=== PATIENT | male | born 1945 | race Caucasian/White ===

== ENCOUNTER 2017-01-15 11:57 | Emergency (ER) | payer MEDICARE, OTHER ==
[2017-01-15 12:10] VITALS: BP 126/82
[2017-01-15] MEDS ORDERED: SILVER SULFADIAZINE 50 APPL JAR TP ONE ×2 (12:42→12:58)
--- OUTSIDE RECORDS SUMMARY | 2017-01-15 12:52 | XMS REPORT | Continuity of Care Document ---
:1945 Author Organization [facility] ([facility]) [place] [address] Phone [phone] Care Team Providers Name Role Phone Unavailable Primary Care Provider Unavailable Source Comments This disclosure is being made pursuant to the Care Everywhere program, applicable federal and state laws, and may not contain all informaitonavailable regarding this patient.[facility] ([facility]) Active Allergies and Adverse Reactions No Active Allergies Current Medications Not on file Active Problems Not on file Social History Tobacco Use Types Packs/Day Years Used Date Never Assessed Last Filed Vital Signs Vital Sign Reading Time Taken Blood Pressure 146/78 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 Pulse 73 

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
== END 2017-01-15 12:55 | disposition home or self-care (01) ==
LOC: ER 11:57
DX: T23.291A Burn of second degree of multiple sites of right wrist and hand, initial encounter (principal); T22.111A Burn of first degree of right forearm, initial encounter; T31.0 Burns involving less than 10% of body surface; X10.2XXA Contact with fats and cooking oils, initial encounter; Y93.9 Activity, unspecified; Y92.000 Kitchen of unspecified non-institutional (private) residence as the place of occurrence of the external cause; G89.29 Other chronic pain; E11.9 Type 2 diabetes mellitus without complications

== ENCOUNTER 2021-02-10 12:36 | Inpatient (IN) ==
[2021-02-10] MEDS ORDERED: NORMAL SALINE 1,000 ML IV ONE (12:53)
[2021-02-10 13:40] LABS: Albumin * 2.9 gm/dl (3.4-5.0); Anion Gap 21.3 mmol/L (6.8-13.8); Bilirubin, Total 1.4 mg/dL (0.0-1.1); Ca. Corrected For Albumin 9.1 mg/dL (8.4-10.2); Calcium * 8.5 mg/dL (7.9-10.9); Carbon Dioxide 15.8 mmol/L (24-32.6); Potassium 4.1 mmol/L (3.4-4.6); Total Protein 6.6 gm/dL (6.2-8.2)
[2021-02-10 14:13] LABS: Hematocrit 39.6 % (42.0-52.0); Hemoglobin 13.6 gm/dL (13.5-18.0); Mean Cell Volume 90.2 fl (78-100); Mean Corpuscular Hgb Conc 34.3 g/dl (32-36); Mean Platelet Volume 9.2 fl (8-11.3); Platelet Count 237 K/mm3 (150-450); Red Blood Count 4.39 M/mm3 (4.7-6.0); Red Cell Distribution Width 13.9 % (11.5-14.0)
[2021-02-10 14:16] LABS: Total Cells Counted 100
[2021-02-10 14:30] LABS: Eosinophil 1 % (0-3); Immature Granulocyte 3 (0-1); Lymphocyte 5 % (20-51); Monocyte 4 % (0-9); Neutrophil 87 % (42-75)
[2021-02-10 14:32] LABS: Neutrophil # 13.4 K/mm3 (1.3-6.0); Poikilocytosis Trace; White Blood Count 15.4 K/mm3 (4.0-10.5)
[2021-02-10 14:33] LABS: Platelet Estimate Normal (NORMAL)
[2021-02-10 14:47] LABS: Urine Bilirubin 1 mg/dl (NEGATIVE); Urine Blood Negative /ul (NEGATIVE); Urine Ketone 50 mg/dL (NEGATIVE); Urine Nitrite Negative (NEGATIVE); Urine Protein 15 mg/dL (NEGATIVE); Urine Specific Gravity >=1.030 SP.GR. (1.005-1.030); Urine Urobilinogen Normal (NORMAL)
[2021-02-10 15:08] LABS: Urine Appearance Clear (CLEAR); Urine Color Amber
--- NOTE | 2021-02-10 15:08 | ERNOTE ---
Neuro HPI ER Record Date of Service: 02/10/21 Presenting Symptoms: weakness, confusion Time Seen by Provider: 02/10/21 12:45 Source: patient Exam Limitations: other - poor historian Immunizations: IMMUNIZATION HX Immunizations Up to Date Yes History of Influenza Vaccine No Hx Pneumococcal Vaccination No Allergies/Adverse Reactions: Allergies Allergy/AdvReac Type Severity Reaction Status Date / Time No Known Allergies Allergy Verified 01/15/17 12:10 Home Medications: HOME MEDICATIONS Atorvastatin Calcium [Lipitor] 80 mg PO DAILY 01/13/13 [Last Taken Unknown] Glipizide [Glipizide Xl] 10 mg PO BID 01/13/13 [Last Taken Unknown] Lisinopril [Zestril] 5 mg PO DAILY 01/13/13 [Last Taken Unknown] metFORMIN HCL [Glumetza] 1,000 mg PO BID 01/13/13 [Last Taken Unknown] Aspirin [Aspirin Enteric Coated] 81 mg PO DAILY 07/26/14 [Last Taken Unknown] Insulin Glargine,Hum.rec.anlog [Lantus] 44 unit SQ BID 01/15/17 [Last Taken Unknown] Acetaminophen 650 mg PO QID 02/10/21 [Last Taken Unknown] Docusate Sodium 100 mg PO DAILY 02/10/21 [Last Taken Unknown] Metoprolol Succinate 25 mg PO DAILY 02/10/21 [Last Taken Unknown] Oxybutynin Chloride [Ditropan] 5 mg PO DAILY 02/10/21 [Last Taken Unknown] Sennosides [Senna] 17.2 mg PO DAILY 02/10/21 [Last Taken Unknown] Tamsulosin HCl 0.4 mg PO DAILY 02/10/21 [Last Taken Unknown] oxyCODONE HCL [Oxycodone HCl] 5 mg PO QID PRN 02/10/21 [Last Taken Unknown] - History of Present Illness Narrative: Patient presents to the ED for weakness and confusion. Apparently the onset is unclear but possible up to a day ago. No one talked to him yesterday then today a welfare check was called. He has had recent hip surgery at [facility] 01/28. He is a poor historian. He is wanting to talk about falling [place] but not really answering questions about his health well. He denies pain aside from his left groin that has been there since surgery. He apparently has confusion at baseline but this is worse. Denies CP or SOB, den ies abdominal pain. Had a mildly low blood glucose and given IV dextrose by report, no change. He denies trauma. Onset: cannot confirm onset - Character of Deficits Additional Deficits: Absent: vision problems Associated Symptoms: Reports: other - left groin pain that is not acute. Prior Treament: Reports: recently seen, recently hospitalized Review of Systems - Narrative Narrative: unable to obtain entire ROS d/t patient condition/confusion Medical History (Last Reviewed 02/10/21 @ 15:04 by Aristeo Jc MD) Diabetes mellitus GERD (gastroesophageal reflux disease) Hypertension Low back pain Poor historian Tinea unguium Vitamin D deficiency Surgical History: Surgical History (Last Reviewed 02/10/21 @ 15:04 by Aristeo Jc MD) History of hip surgery Hx of cardiac cath Family History: Family History (Last Reviewed 02/10/21 @ 15:04 by Aristeo Jc MD) Other No pertinent family history Social History: (Last Reviewed 02/10/21 @ 15:04 by Aristeo Jc MD) Social History: lives independently: Yes household members: none Service: Yes Tobacco: Smoking Status: Former smoker Physical Exam - Physical Exam General Appearance: Present: alert, no apparent distress Head Exam: Present: normal inspection, no evidence of injury Eye Exam: Normal inspection: bilateral, PERRL: bilateral Ears, Nose, Throat: Present: normal ENT inspection, dry mucous membranes Neck: Present: normal inspection Respiratory: Present: no respiratory distress, normal breath sounds Cardiovascular/Chest: Present: regular rate, rhythm, normal peripheral pulses Gastrointestinal/Abdominal: Present: normal bowel sounds, nontender, soft Back Exam: Absent: CVA tenderness (R), CVA tenderness (L) Extremity Exam: Present: other - no signs of wound infection Neurological Exam: Present: alert, other - seems confused, poor historian. Bilateral dysmetria but no clear weakness, seems to lean to the left and left dysmetria is significant but no pronator drift. Cannot lift either leg off the bed but wiggles toes bilaterally. Confused, not sure what city he is in now. Skin Exam: Present: normal color, warm/dry Progress - Results and Orders Patient's Lab Results:: I have reviewed the patient's lab results. - Vital Signs Patient's Vital Signs:: I have reviewed the patient's vital signs. Vital Signs: Vital Signs 02/10/21 12:42 02/10/21 12:55 02/10/21 13:00 Temperature 37.0 C Pulse Rate 88 88 80 Respiratory Rate 17 18 14 Blood Pressure 139/71 139/71 140/77 O2 Sat by Pulse Oximetry 97 96 95 02/10/21 13:45 02/10/21 14:00 02/10/21 14:15 Temperature Pulse Rate 92 81 79 Respiratory Rate 20 17 18 Blood Pressure 123/63 127/61 124/58 O2 Sat by Pulse Oximetry 95 95 95 - EKG EKG #1 EKG: NSR EKG read: Interp. by me EKG Comments: NSR rate 84. Non-specific, no STEMI noted. - X-Ray X-Ray #1 X-Ray: chest Interpretation: Interp. by me X-ray Comments: I personally reviewed x-ray images as well as official radiology report. X-Ray #2 X-Ray: hip Interpretation: Interp. by me X-ray Comments: I personally reviewed x-ray images as well as official radiology report. - CT/Ultrasound CT/Ultrasound Narrative: I reviewed the official radiology report for CT head - Progress/Reassessment Chief Complaint: Altered Mental Status Progress Note-Subjective: 02/10/21 17:00 No clear evidence of stroke but this cannot be entirely ruled out. UTI possible, IV ABx given. No clinical suggestion of infected hip and clinically I feel that is not a concern. He certainly cannot go home, I spoke to Dr Chou who will admit the patient. Patient seems agreeable and his family was notified by nursing. 02/10/21 17:06 [place] did not have beds and admission here OK'd. Departure Clinical Impression: Confusion, AMS (altered mental status), S/P hip replacement, Unstable gait, UTI (urinary tract infection) - Departure Disposition: Still a patient Condition: Fair
[2021-02-10 15:09] LABS: Urine Bacteria 1+; Urine Mucus Moderate - 2+; Urine RBC None Seen /hpf (0-5); Urine WBC TRACE /hpf (0-5)
[2021-02-10 15:37] LABS: CRP 3.5 mg/dL (0.0-0.9)
[2021-02-10] MEDS ORDERED: cefTRIAXone SODIUM 1,000 MG/100 ML BAG IV ONE (16:13)
[2021-02-10] MEDS: ENOXAPARIN SODIUM 100 MG/ML SYRG SC SCH (21:27)
[2021-02-10] MEDS ORDERED: ACETAMINOPHEN 325 MG TABLET PO PRN (22:36)
[2021-02-10] MEDS ORDERED: DOCUSATE SODIUM 100 MG CAPSULE PO PRN (22:36)
[2021-02-10] MEDS ORDERED: oxyCODONE HCL 5 MG TABLET PO PRN (22:36)
--- NOTE | 2021-02-10 23:10 | HP ---
Chief Complaint - Chief Complaint Date of Service: 02/10/21 Time of Service: 23:10 Chief Complaint: Confusion History of Present Illness: Trent is a 75 yo male brought to the [facility] ER due to weakness and confusion. [facility] [place] [facility]. He had a welfare check called on him at home as no one had talked to him yesterday and he was found down on the ground. He is currently oriented x 1 and can recall his birthdate and name, but nothing beyond that. I cannot converse with him as he repeats questions or gives vague answers. His bandages from surgery appeared in the ER to have urine on them. The incision overall appears to be healing without significant concerns of infect. Evaluation in the ER consisted of blood, urine, chest xray, and head CT. There was no stroke on CT, no evidence of infection in lungs or urine. His bloodwork did show slightly elevated CK and a high anion gap metabolic acidosis. His blood sugars were unremarkable. Medical History (Last Reviewed 02/10/21 @ 17:57 by Megan Cheatham RN) Diabetes mellitus GERD (gastroesophageal reflux disease) Hypertension Low back pain Poor historian Tinea unguium Vitamin D deficiency Surgical History: Surgical History (Last Reviewed 02/10/21 @ 17:57 by Megan Cheatham RN) History of hip surgery Hx of cardiac cath Family History: Family History (Last Reviewed 02/10/21 @ 17:57 by Megan Cheatham RN) Other No pertinent family history Social History: (Last Reviewed 02/10/21 @ 15:04 by Aristeo Jc MD) Social History: lives independently: Yes household members: none Service: Yes Tobacco: Smoking Status: Former smoker Review Of Systems (GEN) - Review of Systems Additional Comments: ROS unobtainable due to patient condition Immunizations: IMMUNIZATION HX Immunizations Up to Date Yes History of Influenza Vaccine No Hx Pneumococcal Vaccination No Allergies/Adverse Reactions: Allergies Allergy/AdvReac Type Severity Reaction Status Date / Time No Known Allergies Allergy Verified 01/15/17 12:10 Home Medications: HOME MEDICATIONS Atorvastatin Calcium [Lipitor] 80 mg PO HS 01/13/13 [Last Taken Unknown] Glipizide [Glipizide Xl] 20 mg PO BID 01/13/13 [Last Taken Unknown] Lisinopril [Zestril] 5 mg PO DAILY 01/13/13 [Last Taken Unknown] metFORMIN HCL [Glumetza] 1,000 mg PO BID 01/13/13 [Last Taken Unknown] Aspirin [Aspirin Enteric Coated] 81 mg PO DAILY 07/26/14 [Last Taken Unknown] Insulin Glargine,Hum.rec.anlog [Lantus] 44 unit SQ BID 01/15/17 [Last Taken Unknown] Acetaminophen 650 mg PO QID PRN MDD 4000 mg 02/10/21 [Last Taken Unknown] Docusate Sodium 100 mg PO DAILY PRN 02/10/21 [Last Taken Unknown] Metoprolol Succinate 25 mg PO DAILY 02/10/21 [Last Taken Unknown] Nitroglycerin 0.4 mg SL PRN 02/10/21 [Last Taken Unknown] Oxybutynin Chloride [Ditropan] 5 mg PO DAILY 02/10/21 [Last Taken Unknown] Sennosides [Senna] 17.2 mg PO DAILY 02/10/21 [Last Taken Unknown] Tamsulosin HCl 0.8 mg PO HS 02/10/21 [Last Taken Unknown] oxyCODONE HCL [Oxycodone HCl] 5 mg PO QID PRN 02/10/21 [Last Taken Unknown] Exam - Exam Vital Signs: Vital Signs - Last Taken Temp 37 C 02/10/21 21:44 Pulse 89 02/10/21 21:44 Resp 20 02/10/21 21:44 BP 103/57 02/10/21 21:44 Pulse Ox 93 02/10/21 21:44 Constitutional: Present: Alert, No distress, Other - oriented to name and birthdate only. Absent: Oriented x3 ENT Exam: Present: hearing grossly normal Eye Exam: bilateral eye: normal inspection Respiratory: Present: lungs clear, normal breath sounds Cardiovascular/Chest: Present: regular rate, rhythm, no edema, no murmur Peripheral Pulses: radial (R): 2+, radial (L): 2+ Abdomen: Present: Normal bowel sounds, soft, nontender, nondistended Skin Exam: Present: normal color, warm/dry, no cyanosis Neurologic: Present: no motor/sensory deficits, alert, normal mood/affect. Absent: oriented x 3 Appearance: Present: impaired insight, impaired recent memory, impaired remote memory Eye contact: Present: cooperative, good eye contact, normal speech Diagnostic Studies: Abnormal Lab Results 02/10/21 02/10/21 02/10/21 Range/Units 13:10 13:10 13:10 WBC (4.0-10.5) K/mm3 RBC (4.7-6.0) M/mm3 Hct (42.0-52.0) % Neutrophils % (Manual) (42-75) % Lymphocytes % (Manual) (20-51) % Immature Granulocytes (0-1) Neutrophils # (Manual) (1.3-6.0) K/mm3 Lymphocytes # (Manual) (1.5-3.5) k/mm3 ESR 38 H (0-10) mm/hr Carbon Dioxide 15.8 L (24-32.6) mmol/L Anion Gap 21.3 H (6.8-13.8) mmol/L Random Glucose 138 H (70-110) mg/dL Total Bilirubin 1.4 H (0.0-1.1) mg/dL Creatine Kinase (0-259) U/L C-Reactive Prot, Quant (0.0-0.9) mg/dL Albumin 2.9 L (3.4-5.0) gm/dl Procalcitonin Less than 0.05 L (0.05-0.50) ng/mL Urine Protein (NEGATIVE) mg/dL Urine Glucose (UA) (NEGATIVE) mg/dL Urine Bilirubin (NEGATIVE) mg/dl Urine Bacteria (NONE) Urine Mucus (NONE) 02/10/21 02/10/21 02/10/21 Range/Units 13:10 14:05 14:38 WBC 15.4 H (4.0-10.5) K/mm3 RBC 4.39 L (4.7-6.0) M/mm3 Hct 39.6 L (42.0-52.0) % Neutrophils % (Manual) 87 H (42-75) % Lymphocytes % (Manual) 5 L (20-51) % Immature Granulocytes 3 H (0-1) Neutrophils # (Manual) 13.4 H (1.3-6.0) K/mm3 Lymphocytes # (Manual) 0.8 L (1.5-3.5) k/mm3 ESR (0-10) mm/hr Carbon Dioxide (24-32.6) mmol/L Anion Gap (6.8-13.8) mmol/L Random Glucose (70-110) mg/dL Total Bilirubin (0.0-1.1) mg/dL Creatine Kinase 282 H (0-259) U/L C-Reactive Prot, Quant 3.5 H (0.0-0.9) mg/dL Albumin (3.4-5.0) gm/dl Procalcitonin (0.05-0.50) ng/mL Urine Protein 15 H (NEGATIVE) mg/dL Urine Glucose (UA) 250 H (NEGATIVE) mg/dL Urine Bilirubin 1 H (NEGATIVE) mg/dl Urine Bacteria 1+ H (NONE) Urine Mucus Moderate - 2+ H (NONE) Laboratory Results WBC 15.4 K/mm3 (4.0-10.5) H 02/10/21 14:05 RBC 4.39 M/mm3 (4.7-6.0) L 02/10/21 14:05 Hgb 13.6 gm/dL (13.5-18.0) 02/10/21 14:05 Hct 39.6 % (42.0-52.0) L 02/10/21 14:05 MCV 90.2 fl (78-100) 02/10/21 14:05 MCH 31.0 pg (27-31) 02/10/21 14:05 MCHC 34.3 g/dl (32-36) 02/10/21 14:05 RDW 13.9 % (11.5-14.0) 02/10/21 14:05 Plt Count 237 K/mm3 (150-450) 02/10/21 14:05 MPV 9.2 fl (8-11.3) 02/10/21 14:05 Neutrophils % (Manual) 87 % (42-75) H 02/10/21 14:05 Lymphocytes % (Manual) 5 % (20-51) L 02/10/21 14:05 Monocytes % (Manual) 4 % (0-9) 02/10/21 14:05 Eosinophils % (Manual) 1 % (0-3) 02/10/21 14:05 Immature Granulocytes 3 (0-1) H 02/10/21 14:05 Neutrophils # (Manual) 13.4 K/mm3 (1.3-6.0) H 02/10/21 14:05 Lymphocytes # (Manual) 0.8 k/mm3 (1.5-3.5) L 02/10/21 14:05 Monocytes # (Manual) 0.6 k/mm3 (0.0-1.0) 02/10/21 14:05 Eosinophils # (Manual) 0.2 k/mm3 (0.0-0.7) 02/10/21 14:05 Basophils # (Manual) 0.0 k/mm3 (0.0-0.1) 02/10/21 14:05 Platelet Estimate Normal (NORMAL) 02/10/21 14:05 Poikilocytosis Trace 02/10/21 14:05 ESR 38 mm/hr (0-10) H 02/10/21 13:10 Sodium 137 mmol/L (132-142) 02/10/21 13:10 Plasma Sodium 138 mmol/L (130-142) 02/10/21 13:10 Potassium 4.1 mmol/L (3.4-4.6) 02/10/21 13:10 Chloride 104 mmol/L (97-106) 02/10/21 13:10 Carbon Dioxide 15.8 mmol/L (24-32.6) L 02/10/21 13:10 Anion Gap 21.3 mmol/L (6.8-13.8) H 02/10/21 13:10 BUN 22 mg/dL (6-23) 02/10/21 13:10 Creatinine 1.05 mg/dL (0.4-1.4) 02/10/21 13:10 Est GFR (Non-Af Amer) 73 mL/min (60-130) 02/10/21 13:10 BUN/Creatinine Ratio 21.0 (9.0-21.6) 02/10/21 13:10 Random Glucose 138 mg/dL (70-110) H 02/10/21 13:10 Lactic Acid, Venous 1.5 mmol/L (0.4-2.0) 02/10/21 14:05 Calcium 8.5 mg/dL (7.9-10.9) 02/10/21 13:10 Calcium Adj for Albumin 9.1 mg/dL (8.4-10.2) 02/10/21 13:10 Total Bilirubin 1.4 mg/dL (0.0-1.1) H 02/10/21 13:10 AST 32 U/L (0-48) 02/10/21 13:10 ALT 59 U/L (19-67) 02/10/21 13:10 Alkaline Phosphatase 109 U/L (50-170) 02/10/21 13:10 Ammonia Less than 17.0 mcmol/L (11-35) 02/10/21 13:10 Creatine Kinase 282 U/L (0-259) H 02/10/21 13:10 C-Reactive Prot, Quant 3.5 mg/dL (0.0-0.9) H 02/10/21 13:10 Total Protein 6.6 gm/dL (6.2-8.2) 02/10/21 13:10 Albumin 2.9 gm/dl (3.4-5.0) L 02/10/21 13:10 Procalcitonin Less than 0.05 ng/mL (0.05-0.50) L 02/10/21 13:10 Urine Color Lita 02/10/21 14:38 Urine Appearance Clear (CLEAR) 02/10/21 14:38 Urine pH 5.0 pH (5.0-7.0) 02/10/21 14:38 Ur Specific [place] >=1.030 SP.GR. (1.005-1.030) 02/10/21 14:38 Urine Protein 15 mg/dL (NEGATIVE) H 02/10/21 14:38 Urine Glucose (UA) 250 mg/dL (NEGATIVE) H 02/10/21 14:38 Urine Ketones 50 mg/dL (NEGATIVE) 02/10/21 14:38 Urine Blood Negative /ul (NEGATIVE) 02/10/21 14:38 Urine Nitrate Negative (NEGATIVE) 02/10/21 14:38 Urine Bilirubin 1 mg/dl (NEGATIVE) H 02/10/21 14:38 Urine Urobilinogen Normal EU/dl (NORMAL) 02/10/21 14:38 Ur Leukocyte Esterase Negative /ul (NEGATIVE) 02/10/21 14:38 Urine RBC None seen /hpf (0-5) 02/10/21 14:38 Urine WBC Trace /hpf (0-5) 02/10/21 14:38 Ur Epithelial Cells Trace /hpf (0-5) 02/10/21 14:38 Urine Bacteria 1+ (NONE) H 02/10/21 14:38 Urine Mucus Moderate - 2+ (NONE) H 02/10/21 14:38 Urine Culture Comments No culture indicated 02/10/21 14:38 SARS-CoV-2 (PCR) Not detected (NotDetected) 02/10/21 15:16 Assessment/Plan - Narrative Narrative: Trent is a 75 yo male with metabolic encephalopathy. Unsure on the cause, possibly rhabdo, dehydration. No acute kidney failure present. He is also recently post op left hip replacement. Will give IV fluids and monitor mental status. May consider brain MRI tomorrow if not improving. Will monitor kidney function with rhabdo but his CK was only mildly elevated. Will consult PT for evaluation and speech for cognitive eval. - Assessment/Plan (1) Acute metabolic encephalopathy Problem: Acute (2) High anion gap metabolic acidosis Problem: Acute (3) Rhabdomyolysis Problem: Acute Qualifiers: Rhabdomyolysis type: non-traumatic Qualified Code(s): M62.82 - Rhabdomyolysis (4) Poor historian Problem: Acute
[2021-02-11 06:38] LABS: Mean Cell Volume 91.5 fl (78-100); Mean Corpuscular Hemoglobin 30.5 pg (27-31); Mean Corpuscular Hgb Conc 33.3 g/dl (32-36); Mean Platelet Volume 9.3 fl (8-11.3); Neutrophil # 7.8 K/mm3 (1.3-6.0); Neutrophil % 77.7 % (42-75.0); Platelet Count 236 K/mm3 (150-450); Red Blood Count 4.26 M/mm3 (4.7-6.0); Red Cell Distribution Width 14.1 % (11.5-14.0)
[2021-02-11 06:53] LABS: Albumin * 2.7 gm/dl (3.4-5.0); Anion Gap 15.5 mmol/L (6.8-13.8); BUN/Creatinine Ratio 23.3 (9.0-21.6); Bilirubin, Total 1.2 mg/dL (0.0-1.1); Ca. Corrected For Albumin 8.9 mg/dL (8.4-10.2); Calcium * 8.2 mg/dL (7.9-10.9); Carbon Dioxide 22.6 mmol/L (24-32.6); Potassium 4.1 mmol/L (3.4-4.6); Total Protein 6.2 gm/dL (6.2-8.2)
[2021-02-11] MEDS: INSULIN LISPRO 100 UNITS/ML VIAL SC SCH ×4 (06:58→20:52)
[2021-02-11] MEDS: ENOXAPARIN SODIUM 100 MG/ML SYRG SC SCH (09:05)
[2021-02-11] MEDS: OXYBUTYNIN CHLORIDE 5 MG TABLET PO SCH (09:06)
[2021-02-11] MEDS: ASPIRIN 81 MG TABLET.DR PO SCH (09:06)
[2021-02-11] MEDS: SENNOSIDES 8.6 MG TABLET PO SCH (09:06)
[2021-02-11] MEDS: LISINOPRIL 5 MG TABLET PO SCH (09:09)
[2021-02-11] MEDS: METOPROLOL SUCCINATE 25 MG TABLET.SA PO SCH (09:10)
[2021-02-11] MEDS: NORMAL SALINE 1,000 ML IV PRN ×2 (09:27→17:16)
[2021-02-11 16:27] LABS: Albumin * 2.6 gm/dl (3.4-5.0); Anion Gap 14.4 mmol/L (6.8-13.8); BUN/Creatinine Ratio 22.4 (9.0-21.6); Bilirubin, Total 0.8 mg/dL (0.0-1.1); Calcium * 8.2 mg/dL (7.9-10.9); Carbon Dioxide 22.9 mmol/L (24-32.6); Potassium 4.3 mmol/L (3.4-4.6)
[2021-02-11] MEDS: ROSUVASTATIN CALCIUM 20 MG TABLET PO SCH (20:50)
[2021-02-11] MEDS: TAMSULOSIN HCL 0.4 MG CAP.SR.24H PO SCH (20:51)
--- NOTE | 2021-02-11 23:52 | PN ---
Subjective - Date and Time Seen Date: 02/11/21 Time: 08:30 Subjective Narrative: Trent is talking more today and less confused, although still confused at times. He is alert and oriented to person, place, and time. He does not know why he is in the hospital however. He recalls having surgery at the [facility] and going home. He denies fever, chills, nausea, vomiting, or significant pain. Venous duplex done today due to pain and swelling in leg. Negative for DVT. Discussed doing brain MRI to evaluate confusion but his hip surgery is not compatible with MRI. Objective - Vitals Vitals: Last Vital Signs Temp 36.9 C 02/11/21 22:32 Pulse 65 02/11/21 22:32 Resp 20 02/11/21 22:32 BP 121/50 02/11/21 22:32 Pulse Ox 95 02/11/21 22:32 - Abnormal Lab Findings Abnormal Lab Findings: Abnormal Lab Results 02/11/21 02/11/21 02/11/21 Range/Units 06:00 06:35 06:35 RBC 4.26 L (4.7-6.0) M/mm3 Hgb 13.0 L (13.5-18.0) gm/dL Hct 39.0 L (42.0-52.0) % RDW 14.1 H (11.5-14.0) % Immature Gran % (Auto) 0.50 H (0.001-0.429) % Immature Gran # (Auto) 0.05 H (0.000-0.0310) K/mm3 Neutrophils % 77.7 H (42-75.0) % Lymphocytes % 10.3 L (20-51) % Monocytes % 9.2 H (0.0-9) % Neutrophils # 7.8 H (1.3-6.0) K/mm3 Lymphocytes # 1.03 L (1.5-3.5) k/mm3 Chloride 107 H (97-106) mmol/L Carbon Dioxide 22.6 L (24-32.6) mmol/L Anion Gap 15.5 H (6.8-13.8) mmol/L BUN 24 H (6-23) mg/dL BUN/Creatinine Ratio 23.3 H (9.0-21.6) Random Glucose (70-110) mg/dL Total Bilirubin 1.2 H (0.0-1.1) mg/dL Creatine Kinase 488 H (0-259) U/L Total Protein (6.2-8.2) gm/dL Albumin 2.7 L (3.4-5.0) gm/dl 02/11/21 Range/Units 16:08 RBC (4.7-6.0) M/mm3 Hgb (13.5-18.0) gm/dL Hct (42.0-52.0) % RDW (11.5-14.0) % Immature Gran % (Auto) (0.001-0.429) % Immature Gran # (Auto) (0.000-0.0310) K/mm3 Neutrophils % (42-75.0) % Lymphocytes % (20-51) % Monocytes % (0.0-9) % Neutrophils # (1.3-6.0) K/mm3 Lymphocytes # (1.5-3.5) k/mm3 Chloride (97-106) mmol/L Carbon Dioxide 22.9 L (24-32.6) mmol/L Anion Gap 14.4 H (6.8-13.8) mmol/L BUN 24 H (6-23) mg/dL BUN/Creatinine Ratio 22.4 H (9.0-21.6) Random Glucose 186 H D (70-110) mg/dL Total Bilirubin (0.0-1.1) mg/dL Creatine Kinase 336 H (0-259) U/L Total Protein 6.0 L (6.2-8.2) gm/dL Albumin 2.6 L (3.4-5.0) gm/dl - Exam Constitutional: Present: Alert, Oriented x3, Cooperative ENT Exam: Present: hearing grossly normal Respiratory: Present: lungs clear, normal breath sounds Cardiovascular/Chest: Present: regular rate, rhythm, no murmur Abdomen: Present: Normal bowel sounds, soft, nontender, nondistended Skin Exam: Present: normal color, warm/dry, no cyanosis Neurologic: Present: alert, normal mood/affect, oriented x 3. Absent: sensory deficit Appearance: Present: impaired recent memory Eye contact: Present: cooperative, good eye contact, normal speech Assessment/Plan Plan Narrative: Labs today continue to show metabolic encephalopathy with rhabdomyolysis. CK slightly more elevated than last night. Will increase fluids and monitor electrolytes, CK, and renal function. Unable to get brain MRI due to recent hip surgery. I do not think his encephalopathy is from a stroke or infectious. I believe it is secondary to mild dehydration, weakness with fall, and subsequent rhabdomyolysis. Will continue to treat with fluids. - Problems/Diagnosis (1) Acute metabolic encephalopathy Problem: Acute (2) High anion gap metabolic acidosis Problem: Acute (3) Rhabdomyolysis Problem: Acute Qualifiers: Rhabdomyolysis type: non-traumatic Qualified Code(s): M62.82 - Rhabdomyolysis (4) Poor historian Problem: Acute
[2021-02-12] MEDS: NORMAL SALINE 1,000 ML IV PRN ×3 (01:18→17:42)
[2021-02-12 06:22] LABS: Hematocrit 34.8 % (42.0-52.0); Hemoglobin 11.6 gm/dL (13.5-18.0); Mean Cell Volume 91.8 fl (78-100); Mean Corpuscular Hemoglobin 30.6 pg (27-31); Mean Corpuscular Hgb Conc 33.3 g/dl (32-36); Neutrophil # 5.2 K/mm3 (1.3-6.0); Neutrophil % 74.7 % (42-75.0); Platelet Count 189 K/mm3 (150-450); Red Blood Count 3.79 M/mm3 (4.7-6.0); Red Cell Distribution Width 13.9 % (11.5-14.0); White Blood Count 6.9 K/mm3 (4.0-10.5)
[2021-02-12 06:44] LABS: Albumin * 2.4 gm/dl (3.4-5.0); Anion Gap 13.8 mmol/L (6.8-13.8); BUN/Creatinine Ratio 18.5 (9.0-21.6); Bilirubin, Total 0.7 mg/dL (0.0-1.1); Ca. Corrected For Albumin 8.9 mg/dL (8.4-10.2); Calcium * 7.9 mg/dL (7.9-10.9); Carbon Dioxide 22.4 mmol/L (24-32.6); Potassium 4.2 mmol/L (3.4-4.6); Total Protein 5.5 gm/dL (6.2-8.2)
[2021-02-12] MEDS: INSULIN LISPRO 100 UNITS/ML VIAL SC SCH ×4 (07:15→22:09)
[2021-02-12] MEDS: OXYBUTYNIN CHLORIDE 5 MG TABLET PO SCH (08:32)
[2021-02-12] MEDS: ASPIRIN 81 MG TABLET.DR PO SCH (08:32)
[2021-02-12] MEDS: ENOXAPARIN SODIUM 40 MG/0.4 ML SYRG SC SCH (08:32)
[2021-02-12] MEDS: METOPROLOL SUCCINATE 25 MG TABLET.SA PO SCH (08:32)
[2021-02-12] MEDS: SENNOSIDES 8.6 MG TABLET PO SCH (08:32)
[2021-02-12] MEDS: LISINOPRIL 5 MG TABLET PO SCH (08:32)
--- NOTE | 2021-02-12 13:49 | PN ---
Subjective - Date and Time Seen Date: 02/12/21 Time: 09:00 Subjective Narrative: Trent reports feeling much better. He is alert, oriented x 3, and very talkative. I believe he is mentally back to his baseline. He was evaluated by PT and speech today and continues to improve. PT reports he is still too weak to be by himself. His family would like him to go to SNF for therapies as he is unsafe to be discharged to home. Objective - Vitals Vitals: Last Vital Signs Temp 36.7 C 02/12/21 10:36 Pulse 67 02/12/21 10:36 Resp 18 02/12/21 10:36 BP 120/83 02/12/21 10:36 Pulse Ox 98 02/12/21 10:36 - Abnormal Lab Findings Abnormal Lab Findings: Abnormal Lab Results 02/11/21 02/12/21 02/12/21 Range/Units 16:08 06:15 06:15 RBC 3.79 L (4.7-6.0) M/mm3 Hgb 11.6 L (13.5-18.0) gm/dL Hct 34.8 L (42.0-52.0) % Immature Gran % (Auto) 0.60 H (0.001-0.429) % Immature Gran # (Auto) 0.04 H (0.000-0.0310) K/mm3 Lymphocytes % 12.0 L (20-51) % Monocytes % 9.8 H (0.0-9) % Lymphocytes # 0.83 L (1.5-3.5) k/mm3 Chloride 108 H (97-106) mmol/L Carbon Dioxide 22.9 L 22.4 L (24-32.6) mmol/L Anion Gap 14.4 H (6.8-13.8) mmol/L BUN 24 H (6-23) mg/dL BUN/Creatinine Ratio 22.4 H (9.0-21.6) Random Glucose 186 H D 143 H (70-110) mg/dL Creatine Kinase 336 H (0-259) U/L Total Protein 6.0 L 5.5 L (6.2-8.2) gm/dL Albumin 2.6 L 2.4 L (3.4-5.0) gm/dl - Exam Constitutional: Present: Alert, Oriented x3, Cooperative ENT Exam: Present: hearing grossly normal Respiratory: Present: lungs clear, normal breath sounds Cardiovascular/Chest: Present: regular rate, rhythm, no murmur Abdomen: Present: Normal bowel sounds, soft, nontender, nondistended Skin Exam: Present: normal color, warm/dry, no cyanosis Neurologic: Present: alert, normal mood/affect, oriented x 3, motor weakness - generalized weakness. Absent: sensory deficit Assessment/Plan Plan Narrative: Medically he has improved, although unsafe to discharge to home per PT as he is alone. Will discussed with rehab facility for SNF. Rhabdomyolysis and metabolic encephalopathy have resolved with IV fluids. - Problems/Diagnosis (1) Acute metabolic encephalopathy Problem: Resolved (2) High anion gap metabolic acidosis Problem: Resolved (3) Rhabdomyolysis Problem: Resolved Qualifiers: Rhabdomyolysis type: non-traumatic Qualified Code(s): M62.82 - Rhabdomyolysis (4) Poor historian Problem: Resolved (5) Generalized weakness Problem: Acute
[2021-02-12] MEDS ORDERED: INSULIN GLARGINE,HUM.REC.ANLOG 100 UNITS/ML VIAL SC SCH (21:00)
[2021-02-12] MEDS: TAMSULOSIN HCL 0.4 MG CAP.SR.24H PO SCH (21:06)
[2021-02-12] MEDS: ROSUVASTATIN CALCIUM 20 MG TABLET PO SCH (21:06)
[2021-02-13] MEDS: NORMAL SALINE 1,000 ML IV PRN (01:45)
[2021-02-13] MEDS: INSULIN LISPRO 100 UNITS/ML VIAL SC SCH (07:33)
[2021-02-13 08:04] LABS: Albumin * 2.6 gm/dl (3.4-5.0); Anion Gap 10.7 mmol/L (6.8-13.8); BUN/Creatinine Ratio 12.5 (9.0-21.6); Bilirubin, Total 0.5 mg/dL (0.0-1.1); Ca. Corrected For Albumin 8.8 mg/dL (8.4-10.2); Carbon Dioxide 25.1 mmol/L (24-32.6); Potassium 3.8 mmol/L (3.4-4.6); Total Protein 5.8 gm/dL (6.2-8.2)
[2021-02-13] MEDS: ENOXAPARIN SODIUM 40 MG/0.4 ML SYRG SC SCH (08:55)
[2021-02-13] MEDS: SENNOSIDES 8.6 MG TABLET PO SCH (08:55)
[2021-02-13] MEDS: ASPIRIN 81 MG TABLET.DR PO SCH (08:55)
[2021-02-13] MEDS: OXYBUTYNIN CHLORIDE 5 MG TABLET PO SCH (08:55)
[2021-02-13] MEDS: LISINOPRIL 5 MG TABLET PO SCH (08:56)
[2021-02-13] MEDS: METOPROLOL SUCCINATE 25 MG TABLET.SA PO SCH (08:56)
[2021-02-13] MEDS ORDERED: TAMSULOSIN HCL 0.4 MG CAP.SR.24H PO SCH (09:00)
--- NOTE | 2021-02-13 09:42 | DS ---
(1) Acute metabolic encephalopathy Problem: Resolved (2) High anion gap metabolic acidosis Problem: Resolved (3) Rhabdomyolysis Problem: Resolved Qualifiers: Rhabdomyolysis type: non-traumatic Qualified Code(s): M62.82 - Rhabdomyolysis (4) Poor historian Problem: Resolved (5) Generalized weakness Problem: Acute Date of Discharge:: 02/13/21 Hospital Course: Trent is a 75 yo male admitted for metabolic encephalopathy, rhabdomyolysis, and weakness. He was treated with IV fluids and evaluated with PT and speech for cognition. I suspect he was not moving at home and developed increasing weakness and ultimately fell and was unable to get up causing rhabdom yolisis from prolonged period down. He clinically improved with fluids and mentation improved to his baseline. He continues to be weak and PT recommended that he was unsafe to be at home. He was accepted at [facility] and he will be discharged to SNF. Procedures Performed: none Results and Findings: Pending Mircobiology Results 02/10/21 14:05 Blood Blood Culture - Preliminary NO GROWTH AFTER 48 HOURS 02/10/21 13:10 Blood Blood Culture - Preliminary NO GROWTH AFTER 48 HOURS Lab Pending Results 02/10/21 13:10: Sodium 137, Plasma Sodium 138, Potassium 4.1, Chloride 104, Carbon Dioxide 15.8 L, Anion Gap 21.3 H, BUN 22, Creatinine 1.05, Est GFR (Non- Af Amer) 73, BUN/Creatinine Ratio 21.0, Random Glucose 138 H, Calcium 8.5, Calcium Adj for Albumin 9.1, Total Bilirubin 1.4 H, AST 32, ALT 59, Alkaline Phosphatase 109, Total Protein 6.6, Albumin 2.9 L 02/10/21 13:10: Ammonia Less than 17.0 02/10/21 13:10: Procalcitonin Less than 0.05 L 02/10/21 13:10: ESR 38 H 02/10/21 13:10: Creatine Kinase 282 H, C-Reactive Prot, Quant 3.5 H 02/10/21 14:05: WBC 15.4 H, RBC 4.39 L, Hgb 13.6, Hct 39.6 L, MCV 90.2, MCH 31.0, MCHC 34.3, RDW 13.9, Plt Count 237, MPV 9.2, Neutrophils % (Manual) 87 H, Lymphocytes % (Manual) 5 L, Monocytes % (Manual) 4, Eosinophils % (Manual) 1, Immature Granulocytes 3 H, Neutrophils # (Manual) 13.4 H, Lymphocytes # (Manual) 0.8 L, Monocytes # (Manual) 0.6, Eosinophils # (Manual) 0.2, Basophils # (Manual) 0.0, Platelet Estimate Normal, Poikilocytosis Trace 02/10/21 14:05: Lactic Acid, Venous 1.5 02/10/21 14:38: Urine Color Lita, Urine Appearance Clear, Urine pH 5.0, Ur Specific [place] >=1.030, Urine Protein 15 H, Urine Glucose (UA) 250 H, Urine Ketones 50, Urine Blood Negative, Urine Nitrate Negative, Urine Bilirubin 1 H, Urine Urobilinogen Normal, Ur Leukocyte Esterase Negative, Urine RBC None seen, Urine WBC Trace, Ur Epithelial Cells Trace, Urine Bacteria 1+ H, Urine Mucus Moderate - 2+ H, Urine Culture Comments No culture indicated 02/10/21 15:16: SARS-CoV-2 (PCR) Not detected 02/11/21 06:00: Creatine Kinase 488 H 02/11/21 06:35: WBC 10.0 D, RBC 4.26 L, Hgb 13.0 L, Hct 39.0 L, MCV 91.5, MCH 30.5, MCHC 33.3, RDW 14.1 H, Plt Count 236, MPV 9.3, Immature Gran % (Auto) 0.50 H, Immature Gran # (Auto) 0.05 H, Neutrophils % 77.7 H, Lymphocytes % 10.3 L, Monocytes % 9.2 H, Eosinophils % 1.9, Basophils % 0.4, Nucleated RBC % 0.0, Neutrophils # 7.8 H, Lymphocytes # 1.03 L, Monocytes # 0.9, Eosinophils # 0.2, Absolute Basophils 0.0 02/11/21 06:35: Sodium 141, Plasma Sodium 141, Potassium 4.1, Chloride 107 H, Carbon Dioxide 22.6 L, Anion Gap 15.5 H, BUN 24 H, Creatinine 1.03, Est GFR (Non-Af Amer) 75, BUN/Creatinine Ratio 23.3 H, Random Glucose 105, Calcium 8.2, Calcium Adj for Albumin 8.9, Total Bilirubin 1.2 H, AST 37, ALT 57, Alkaline Phosphatase 103, Total Protein 6.2, Albumin 2.7 L 02/11/21 16:08: Sodium 138, Plasma Sodium 139, Potassium 4.3, Chloride 105, Carbon Dioxide 22.9 L, Anion Gap 14.4 H, BUN 24 H, Creatinine 1.07, Est GFR (Non-Af Amer) 72, BUN/Creatinine Ratio 22.4 H, Random Glucose 186 H D, Calcium 8.2, Calcium Adj for Albumin 9.0, Total Bilirubin 0.8, AST 30, ALT 56, Alkaline Phosphatase 100, Creatine Kinase 336 H, Total Protein 6.0 L, Albumin 2.6 L 02/12/21 06:15: WBC 6.9 D, RBC 3.79 L, Hgb 11.6 L, Hct 34.8 L, MCV 91.8, MCH 30.6, MCHC 33.3, RDW 13.9, Plt Count 189, MPV 9.0, Immature Gran % (Auto) 0.60 H, Immature Gran # (Auto) 0.04 H, Neutrophils % 74.7, Lymphocytes % 12.0 L, Monocytes % 9.8 H, Eosinophils % 2.5, Basophils % 0.4, Nucleated RBC % 0.0, Neutrophils # 5.2, Lymphocytes # 0.83 L, Monocytes # 0.7, Eosinophils # 0.2, Absolute Basophils 0.0 02/12/21 06:15: Sodium 140, Plasma Sodium 141, Potassium 4.2, Chloride 108 H, Carbon Dioxide 22.4 L, Anion Gap 13.8, BUN 17, Creatinine 0.92, Est GFR (Non-Af Amer) 85, BUN/Creatinine Ratio 18.5, Random Glucose 143 H, Calcium 7.9, Calcium Adj for Albumin 8.9, Total Bilirubin 0.7, AST 24, ALT 50, Alkaline Phosphatase 91, Creatine Kinase 207, Total Protein 5.5 L, Albumin 2.4 L 02/13/21 07:45: Sodium 140, Plasma Sodium 141, Potassium 3.8, Chloride 108 H, Carbon Dioxide 25.1, Anion Gap 10.7, BUN 11, Creatinine 0.88, Est GFR (Non-Af Amer) 90, BUN/Creatinine Ratio 12.5, Random Glucose 156 H, Calcium 8.0, Calcium Adj for Albumin 8.8, Total Bilirubin 0.5, AST 28, ALT 55, Alkaline Phosphatase 106, Creatine Kinase 145, Total Protein 5.8 L, Albumin 2.6 L Discharge Location: [facility] Disposition: SNF Condition: Fair Level of Care: SNF Discharge Activity: Activity as tolerated Discharge Diet: Consistent carbs Usp Therapy: Physical Therapy, Occupation Therapy, Speech Therapy Referrals: Riccardo Chou DO [Staff Physician] - (Video visit prn) Problem Oriented Discharge Instructions to Patient/Family: Rhabdomyolysis Additional Patient Instructions (free text): To [facility] for Therapies, PT and OT to evaluate and treat. Complete Home Medications List: Complete Home Medication List: Atorvastatin Calcium [Lipitor] 80 mg PO HS 01/13/13 Glipizide [Glipizide Xl] 20 mg PO BID 01/13/13 Lisinopril [Zestril] 5 mg PO DAILY 01/13/13 metFORMIN HCL [Glumetza] 1,000 mg PO BID 01/13/13 Aspirin [Aspirin Enteric Coated] 81 mg PO DAILY 07/26/14 Acetaminophen 650 mg PO QID PRN MDD 4000 mg 02/10/21 Docusate Sodium 100 mg PO DAILY PRN 02/10/21 Metoprolol Succinate 25 mg PO DAILY 02/10/21 Nitroglycerin 0.4 mg SL PRN 02/10/21 Oxybutynin Chloride [Ditropan] 5 mg PO DAILY 02/10/21 Sennosides [Senna] 17.2 mg PO DAILY 02/10/21 Tamsulosin HCl 0.8 mg PO HS 02/10/21 oxyCODONE HCL [Oxycodone HCl] 5 mg PO QID PRN 02/10/21 Insulin Glargine,Hum.rec.anlog [Lantus] 44 units SC HS vial 02/13/21 Forms: Patient Portal Registration
[2021-02-13 10:40] VITALS: BP 140/66
== END 2021-02-13 10:28 | DRG 557 ==
LOC: MS 12:36 → ER 12:36 → MS 17:38
PROVIDERS: ADMIT Family Medicine; ATTEND Family Medicine
DX: I10 Essential (primary) hypertension; G93.41 Metabolic encephalopathy; E87.2 Acidosis; E86.0 Dehydration; E11.9 Type 2 diabetes mellitus without complications; M62.82 Rhabdomyolysis; Z96.642 Presence of left artificial hip joint